=== PATIENT | female | born 1975 | race Asian ===

== ENCOUNTER 2018-08-27 15:03 | Emergency (ER) | payer OTHER ==
[2018-08-27 15:27] VITALS: BP 161/91; PULSE 103; TEMP 98.3; BMI 32.3
[2018-08-27] MEDS ORDERED: HIV POST EXPOSURE PROPHYLAXIS KIT NR ONE (15:53)
--- NOTE | 2018-08-27 15:54 | PDOC ---
History of Present Illness - General Chief Complaint: Non EmpBld/Body Flud Exposure Stated Complaint: FINGER PRICK Time Seen by Provider: 08/27/18 15:29 Past History - Past Medical History Allergies/Adverse Reactions: Allergies Allergy/AdvReac Type Severity Reaction Status Date / Time No Known Allergies Allergy Verified 08/27/18 15:24 Home Medications: Ambulatory Orders Raltegravir [Isentress -] 400 mg PO BID #46 tab 08/27/18 COPD: No Hypercholesterolemia: Yes Thyroid Disease: Yes (hypo) - Immunization History Immunization Up to Date: Yes - Suicide/Smoking/Psychosocial Hx Smoking History: Never smoked Have you smoked in the past 12 months: No Information on smoking cessation initiated: No Hx Alcohol Use: No Drug/Substance Use Hx: No Review of Systems - Review of Systems Able to Perform ROS?: Yes Comments:: 08/27/18 18:14 CONSTITUTIONAL: Absent: fever, chills, diaphoresis, generalized weakness, malaise, loss of appetite MUSCULOSKELETAL: Absent: myalgia, arthralgia, joint swelling SKIN: Present: needle stick Absent: rash, itching, pallor NEUROLOGIC: Absent: headache, focal weakness or paresthesias, dizziness, unsteady gait, seizure, mental status changes, bladder or bowel incontinence PSYCHIATRIC: Absent: anxiety, depression, suicidal or homicidal ideation, hallucinations. Is the patient limited Khmer proficient: No *Physical Exam - Vital Signs Last Vital Signs Temp Pulse Resp BP Pulse Ox 98.3 F 103 H 20 161/91 99 08/27/18 15:25 08/27/18 15:25 08/27/18 15:25 08/27/18 15:25 08/27/18 15:25 - Physical Exam Comments: 08/27/18 18:15 GENERAL: The patient is awake, alert, and fully oriented, in no acute distress. HEAD: Normal with no signs of trauma. EYES: Pupils equal, round and reactive to light, extraocular movements intact, sclera anicteric, conjunctiva clear. EXTREMITIES: Normal range of motion, no edema. NEUROLOGICAL: Normal speech, normal gait. PSYCH: Normal mood, normal affect. SKIN: L thumb with scratch? No active bleeding. Warm, Dry, normal turgor, no rashes or lesions noted. ED Treatment Course - LABORATORY CBC & Chemistry Diagram: 08/27/18 16:25 08/27/18 16:25 Medical Decision Making - Medical Decision Making 08/27/18 18:15 The patient is a 43-year-old female with PMH of hypothyroid disease, presents to the ER today after getting stuck with a needle at work. She works at dialysis center. She states that she stuck her left thumb by accident when withdrawing the needle from the patient. She states that at the time she squeezed out some blood and washed her hands immediately after. She is no longer bleeding. Denies fevers and chills A/P: Needlestick injury On exam left thumb pad with potential scratch. HIV, hepatitis testing drawn Patient requesting HIV Pep, as she is unsure to the patient's HIV status. HIV testing is negative today Discharge home with the HIV And follow up with her employee health for further HIV testing Discharge home I discussed the physical exam findings, ancillary test results and final diagnoses with the patient. I answered all of the patient's questions. The patient was satisfied with the care received and felt comfortable with the discharge plan and treatment plan. The Patient agrees to follow up with the primary care physician/specialist within 24-72 hours. Return precautions were given. *DC/Admit/Observation/Transfer Diagnosis at time of Disposition: Needle stick injury - Discharge Dispostion Disposition: HOME Condition at time of disposition: Stable Decision to Admit order: No - Referrals - Patient Instructions Additional Instructions: You were evaluated after needlestick today. Please take the Pep as directed to prevent HIV transmission 08/27/18 1. As discussed, a screening test for the HIV virus was performed today. Your HIV test is Negative (normal). 2. As discussed, if you engaged in high risk-behavior in the three (3) months prior to this test, you could still potentially be at risk and you will need to be re-tested. 3. As discussed, avoid any high risk behavior (such as unprotected sex or needle-sharing) in the future to minimize the chances of yuko HIV. Return to the ER For any new or worsening symptoms - Post Discharge Activity Forms/Work/School Notes: Back to Work
[2018-08-27 16:46] LABS: BASO % 0.5 % (0-2.0); EOS % 0.7 % (0-4.5); HEMATOCRIT 39.1 % (32.4-45.2); HEMOGLOBIN 13.2 GM/dL (10.7-15.3); MCHC 33.8 g/dl (32.0-36.0); MEAN CELL VOLUME 76.9 fl (80-96); MEAN PLT VOLUME 8.1 fl (7.5-11.1); NEUT % 74.8 % (42.8-82.8); PLATELET COUNT 372 K/MM3 (134-434); RBC 5.09 M/mm3 (3.60-5.2); RDW 14.6 % (11.6-15.6); WHITE BLOOD COUNT 12.4 K/mm3 (4.0-10.0)
[2018-08-27 16:55] LABS: ALBUMIN 4.1 g/dl (3.4-5.0); BILIRUBIN,TOTAL 0.7 mg/dL (0.2-1); BLOOD UREA NITROGEN 13.6 mg/dL (7-18); CALCIUM 9.1 mg/dL (8.5-10.1); CREATININE 0.7 mg/dL (0.55-1.3); POTASSIUM 3.9 mmol/L (3.5-5.1); TOT PROT 8.3 g/dl (6.4-8.2)
[2018-08-27] MEDS ORDERED: HIV POST EXPOSURE PROPHYLAXIS KIT PO ONE (17:07)
[2018-08-29 13:11] LABS: HEP B CORE TOTAL Negative (Negative)
== END 2018-08-27 18:28 | disposition home or self-care (01) ==
LOC: JERFT 15:03
DX: Z77.21 Contact with and (suspected) exposure to potentially hazardous body fluids (principal); S61.032A Puncture wound without foreign body of left thumb without damage to nail, initial encounter; W46.1XXA Contact with contaminated hypodermic needle, initial encounter; Y93.F9 Activity, other caregiving; Y92.538 Other ambulatory health services establishments as the place of occurrence of the external cause; Y99.0 Civilian activity done for income or pay
CPT/HCPCS: 36415; 80053; 85025; 86317; 86704; 86706; 86803; 87340; 87389; 99281-25